=== PATIENT | male | born 1965 | race African-American/Black ===

== ENCOUNTER 2017-10-21 21:22 | Emergency (ER) | payer OTHER ==
[~2017-10-21] VITALS: Ht 185.4 cm; Wt 93.0 kg
[~2017-10-21 21:22] MED LIST: ALBU2.5V12 IH
[2017-10-21 21:30] VITALS: BP 157/71
--- NOTE | 2017-10-21 21:30 | ER.PDOC ---
General Chief Complaint: Chest Pain-Cardiac Nature Stated Complaint: CHEST PAIN Time seen by MD: 21:14 Source: patient, family Exam Limitations: no limitations History of Present Illness Initial Comments pt is type 2 DM black male who experienced sudden onset of left sided chest pain that caused tingling down his left arm. denies fever, chill, diaphoresis Timing/Duration: 1 hour Severity/Quality: mild, moderate Radiation: arms (left) Activities at Onset: rest Prior CP/Workup: No Prior Chest Pain Modifying Factors: No antacids, No breathing, No coughing, No defecating, No eating, No exercise, No lying down, No morphine, No movement, No nitroglycerin, No oxygen, No palpation, No rest, No other Aspirin Today: 81 mg x 1 Allergies: Coded Allergies: No Known Allergies (Unverified , 10/02/15) Home Meds Reported Medications Albuterol Sulfate (ALBUTEROL SULFATE) 2.5 Mg/0.5 Ml Vial.neb, 2.5 MG IH PRN Y for resp diff 10/02/15 Past Medical History Medical History: diabetes, high cholesterol, hypertension Surgical History: knee Social History Smoking: cigarettes, less than 1 pack/day Alcohol Use: occassionally Drug Use: none Progress Progress chief problem is to better control of his hypertension will add clonidine and folow up with PCP EKG/XRAY/CT/US EKG: NSR Course Blood Pressure Systolic: 157 Blood Pressure Diastolic: 71 Blood Pressure Mean: 99 Departure Time of Disposition: 00:28 Disposition: 01 HOME, SELF-CARE Impression: Primary Impression: Non-cardiac chest pain Additional Impression: Hypertensive urgency Condition: Improved Referrals: PCP,UNKNOWN (PCP) PRIMARY CARE PROVIDER Comments make appointment with PCP to follow blood pressure Duration or Time Spent with Pa: 20 Problem Qualifiers SUZAN BASSETT MD October 21, 2017 21:30
--- NOTE | 2017-10-21 21:31 | NUR ---
ASPIRIN TAKEN SYSTEMS PLANNER, NO ASPIRIN NEEDED PER EDP
[2017-10-21 21:35] LABS: BASOPHIL # 0.1 10^3/uL (0.0-0.1); BASOPHIL % 0.8 % (0.0-0.2); EOSINOPHIL # 0.5 10^3/uL (0.0-0.2); EOSINOPHIL % 5.5 % (0.0-5.0); HEMOGLOBIN 13.9 g/dL (13.9-16.3); LYMPHOCYTES # 2.8 10^3/uL (1.0-4.8); LYMPHOCYTES % 31.3 % (24.0-44.0); MEAN CELL HGB 29.2 pg (26-34); MEAN CELL HGB CONCENTRATION 33.5 g/dL (33-37); MEAN CORP VOLUME 87.2 fL (78-100); MEAN PLATELET VOLUME 10.1 fL (7.8-11.0); MONOCYTES # 0.9 10^3/uL (0.3-0.8); MONOCYTES % 10.2 % (5.0-12.0); NEUTROPHIL # 4.7 10^3/uL (1.8-7.7); RED CELL DISTRIBUTION WIDTH 13.9 % (11.5-14.5)
--- NOTE | 2017-10-21 21:37 | NUR ---
XRAY IN ROOM FOR XRAY CHEST
--- NOTE | 2017-10-21 21:54 | DIREP ---
PROCEDURE:CHEST 1 VIEW, 2 images COMPARISON:None. INDICATIONS:left sided chest pain, diabetes FINDINGS: LUNGS/PLEURA:No significant pulmonary parenchymal abnormalities. No effusions. VASCULATURE:Normal. Unremarkable pulmonary vasculature. CARDIAC:Normal. No cardiac silhouette abnormality or cardiomegaly. MEDIASTINUM:Normal. No visible mass or adenopathy. BONES:Normal. No fracture or visible bony lesion. OTHER:EKG leads overlie the chest. CONCLUSION:No acute cardiopulmonary disease. Dictated by: Tej Silva M.D. on 10/21/2017 at 09:53 PM
[2017-10-21 21:58] LABS: ALANINE AMINOTRANSFERASE(ML) 59 U/L (12-78); ALKALINE PHOSPHATASE 114 U/L (50-136); ASPARTATE AMINO TRANSFERASE 33 U/L (0-35); CALCIUM 8.9 mg/dL (8.4-10.5); CARBON DIOXIDE 26.1 mmol/L (20.0-32); GLUCOSE 110 mg/dL (70-110)
[2017-10-21 22:06] VITALS: BP 155/104
[2017-10-21 22:30] VITALS: BP 149/100
[2017-10-21] MEDS ORDERED: APRESOLINE PO STA ×2 (22:40→23:16)
[2017-10-21 22:42] VITALS: BP 153/102
[2017-10-21 23:06] VITALS: BP 154/98
[2017-10-21] MEDS ORDERED: APRESOLINE ONE ×2 (23:08→23:12)
[2017-10-21 23:20] VITALS: BP 154/98
--- NOTE | 2017-10-21 23:26 | PCM.EKG ---
[facility] Test Date: 2017-10-21 Test Time: 21:29:17 Pat Name: ANGEL LUIS DALE Department: Room: Gender: M [employer]: JOSE DAVID : 1965 Requested By: SUZAN BASSETT Order Number: [id number] Reading MD: Measurements Intervals [place] Rate: 66 P: 53 CT: 124 QRS: 65 QRSD: 96 T: 69 QT: 448 QTc: 469 Interpretive Statements Normal sinus rhythm Prolonged QT Abnormal ECG No previous ECG available for comparison Please click the below link to view image of tracing.
[2017-10-21] MEDS ORDERED: CATAPRES ONE (23:47)
[2017-10-21] MEDS ORDERED: CATAPRES PO STA (23:47)
[2017-10-22] MEDS ORDERED: TYLENOL PO ONE (00:09)
[2017-10-22] MEDS ORDERED: APRESOLINE ONE (00:19)
[2017-10-22] MEDS ORDERED: APRESOLINE PO STA (00:19)
[2017-10-22] MEDS ORDERED: TYLENOL PO STA (00:21)
[2017-10-22 00:44] VITALS: BP 147/103
== END 2017-10-22 00:41 | disposition home or self-care (01) ==
LOC: ER 21:22
DX: I16.0 Hypertensive urgency (principal); F17.210 Nicotine dependence, cigarettes, uncomplicated; E11.9 Type 2 diabetes mellitus without complications; E78.00 Pure hypercholesterolemia, unspecified
CPT/HCPCS: 36415; 71045; 80053; 83880; 84484; 85025; 93005; 99285; A9150; J0360